=== PATIENT | female | born 1995 | race Caucasian/White ===

== ENCOUNTER → 2016-12-23 | Outpatient (CLI) | payer BC ==
--- NOTE | 2016-12-23 13:29 | RADIOLOGY REPORT (SQ) ---
EXAM DESCRIPTION: T SPINE AP/LAT COMPLETED DATE/TIME: 12/23/2016 1:09 pm REASON FOR STUDY: PECTUS CARINATUM (Q67.7), SCOLIOSIS (M41.9) M41.9 SCOLIOSIS, UNSPECIFIED Q67.7 P ECTUS CARINATUM COMPARISON: Lumbar spine films, chest and rib films same date NUMBER OF VIEWS: Two views. TECHNIQUE: AP and lateral radiographic images acquired of the thoracic spine. LIMITATIONS: None. FINDINGS: MINERALIZATION: Normal. ALIGNMENT: There is convex rightward thoracic curvature, 19 from the top of T5 to the bottom of T9. VERTEBRAE: No fracture or bone lesion. Maintained height, normal segmentation. DISCS: No significant loss of height or significant narrowing. No large osteophytes. HARDWARE: None in the spine. MEDIASTINUM AND SOFT TISSUES: Normal heart size and aortic contour. No soft tissue abnormality. VISUALIZED LUNG CHONG: Clear. OTHER: No other significant finding. IMPRESSION: Convex rightward thoracic curvature, 19 from the top of T5 to the bottom of T9. TECHNICAL DOCUMENTATION: JOB ID: [id number] [employer]- All Rights Reserved
--- NOTE | 2016-12-23 13:30 | RADIOLOGY REPORT (SQ) ---
EXAM DESCRIPTION: L SPINE 2 VIEWS COMPLETED DATE/TIME: 12/23/2016 1:09 pm REASON FOR STUDY: PECTUS CARINATUM (Q67.7), SCOLIOSIS (M41.9) M41.9 SCOLIOSIS, UNSPECIFIED Q67.7 P ECTUS CARINATUM COMPARISON: None. NUMBER OF VIEWS: Two views. TECHNIQUE: AP and lateral radiographic images acquired of the lumbar spine. LIMITATIONS: None. FINDINGS: MINERALIZATION: Normal. SEGMENTATION: Normal. No transitional anatomy. ALIGNMENT: 13 of convex leftward lumbar curvature, from the top of L3 to the bottom of L5. VERTEBRAE: Maintained height. No fracture or worrisome bone lesion. DISCS: Preserved height. No significant osteophytes or end plate irregularity. POSTERIOR ELEMENTS: Pedicles and facets are intact. No pars defect or posterior arch defects. HARDWARE: None in the spine. PARASPINAL SOFT TISSUES: Normal. PELVIS: Intact as visualized. No fractures or worrisome bone lesions. SI joints intact. OTHER: No other significant finding. IMPRESSION: Convex leftward lumbar curvature TECHNICAL DOCUMENTATION: JOB ID: [id number]- All Rights Reserved
--- NOTE | 2016-12-23 13:38 | RADIOLOGY REPORT (SQ) ---
EXAM DESCRIPTION: CHEST PA/LAT COMPLETED DATE/TIME: 12/23/2016 1:09 pm REASON FOR STUDY: PECTUS CARINATUM (Q67.7), SCOLIOSIS (M41.9) COMPARISON: Thoracic spine two views same EXAM PARAMETERS: NUMBER OF VIEWS: two views TECHNIQUE: Digital Frontal and Lateral radiographic views of the chest acquired. RADIATION DOSE: NA LIMITATIONS: none FINDINGS: LUNGS AND PLEURA: No opacities, masses or pneumothorax. No pleural effusion. MEDIASTINUM AND HILAR STRUCTURES: No masses or contour abnormalities. HEART AND VASCULAR STRUCTURES: Heart normal size. No evidence for failure. BONES: Convex rightward thoracic scoliosis. No significant anterior bony bowing of the sternum. HARDWARE: None in the chest. OTHER: No other significant finding. IMPRESSION: NO SIGNIFICANT RADIOGRAPHIC FINDING IN THE CHEST. TECHNICAL DOCUMENTATION: JOB ID: [id number] [employer]- All Rights Reserved
--- NOTE | 2016-12-23 13:41 | RADIOLOGY REPORT (SQ) ---
EXAM DESCRIPTION: RIBS LEFT W/O PA CHEST COMPLETED DATE/TIME: 12/23/2016 1:09 pm REASON FOR STUDY: PECTUS CARINATUM (Q67.7), SCOLIOSIS (M41.9) M41.9 SCOLIOSIS, UNSPECIFIED Q67.7 P ECTUS CARINATUM COMPARISON: Thoracic spine films, chest films same date NUMBER OF VIEWS: Two views left ribs TECHNIQUE: Images acquired of the left ribs in the area of focal concern. LIMITATIONS: None. FINDINGS: RIBS: No acute displaced fracture. No worrisome bone lesions. No duplicated ribs or deve lopmental anomaly of the ribs. LUNGS: Limited exam. No obvious pneumothorax. No pleural effusion. OTHER: No other significant finding. IMPRESSION: Unremarkable left rib films COMMENT: SITE OF TRAUMA/COMPLAINT MARKED/STAMP COMPLETED: Yes TECHNICAL DOCUMENTATION: JOB ID: [id number] [employer]- All Rights Reserved
== END ==
LOC: RAD 12:37
PROVIDERS: ATTEND Family Medicine Geriatric Medicine
DX: Q67.7 Pectus carinatum (principal); Q67.5 Congenital deformity of spine
CPT/HCPCS: 71020; 72070; 72100